=== PATIENT | male | born 1965 | race Caucasian/White ===

== ENCOUNTER 2021-05-17 11:53 | Inpatient (IN) ==
[2021-05-17] MEDS ORDERED: NS 0.9% 1000 ml BAG 1,000 ML IV ONE (11:54)
[2021-05-17] MEDS ORDERED: levETIRAcetam IV 1,500 MG in NS 0.9% 100 ml BAG 100 ML IVPB ONE (12:27)
[2021-05-17 12:42] LABS: ABS Basophils 0.1 10^3/ul (0-0.2); ABS Eosinophils 0.1 10^3/ul (0-0.6); ABS Lymphocytes 1.6 10^3/ul (1.0-4.8); ABS Monocytes 0.5 10^3/ul (0-0.8); ABS Neutrophils 4.1 10^3/ul (1.5-7.7); Hematocrit 46 % (42-52); Hemoglobin 16.4 g/dL (14.0-18.0); Lymphocyte % 24.4 %; Mean Corpuscular HGB Conc 35 g/dL (31-36); Mean Corpuscular Hemoglobin 34 pg (27-31); Mean Corpuscular Volume 95 fL (80-94); Platelet Count 221 10^3/uL (150-450); Red Blood Count 4.88 10^6 /uL (4.18-5.48); Red Cell Distribution Width 13 % (10-15); White Blood Count 6.4 10^3/uL (3.5-10.8)
[2021-05-17] MEDS ORDERED: Dexamethasone IV 10 MG in NS 0.9% 50 ML 50 ML IVPB ONE (12:59)
[2021-05-17 13:02] LABS: ALT 19 U/L (7-52); Alkaline Phosphatase 89 U/L (35-149); Blood Urea Nitrogen 7 mg/dL (6-24); CO2 Carbon Dioxide 25 mmol/L (22-32); Calcium 9.6 mg/dL (8.6-10.3); Chloride 95 mmol/L (101-111); Cholesterol 144 mg/dL; EGFR African American 101.6 (>60); EGFR Non-African American 83.9 (>60); Globulin 3.9 g/dL (2-4); Glucose 117 mg/dL (70-100); HDL Cholesterol 34.5 mg/dL; LDL Cholesterol 88 mg/dL; Sodium 129 mmol/L (135-145); Total Protein 7.9 g/dL (6.4-8.9); Triglycerides 107 mg/dL
[2021-05-17 13:34] LABS: Anion Gap 9 mmol/L (2-11)
[2021-05-17 13:42] LABS: Activated Partial Thrombo Time 34.4 seconds (26.0-38.0); INR 1.25 (0.86-1.15)
[2021-05-17] MEDS ORDERED: Iodixanol (CONTRAST) 320 MG/ML 100 ML SDV IV ONE (13:51)
[2021-05-17] MEDS ORDERED: Dextrose 50% Syringe 50 ml 25 GM/50 ML SYRINGE IV PUSH PRN (14:36)
[2021-05-17 14:53] LABS: Urine Appearance Clear; Urine Bilirubin Negative (Negative); Urine Blood 1+ (Negative); Urine Color Straw; Urine Glucose Negative (Negative); Urine Ketones Negative (Negative); Urine Nitrite Negative (Negative); Urine Protein Negative (Negative); Urine Specific Gravity 1.002 (1.002-1.030); Urine Urobilinogen Negative (Negative)
[2021-05-17 15:00] LABS: Urine Bacteria Absent (Absent); Urine Red Blood Cell Trace(0-2/hpf) (Absent); Urine White Blood Cell Absent (Absent)
[2021-05-17] MEDS ORDERED: hydrALAZINE 20 mg/ml 1 ML Vial IV IV SLOW PU PRN (17:54)
[2021-05-17] MEDS ORDERED: Gadoteridol (CONTRAST) 279.3 MG/ML 10 ML IV ONE (20:34)
[2021-05-17] MEDS: Dexamethasone IV 4 MG/ML VIAL 1 ml VIAL IV SLOW PU SCH (21:41)
[2021-05-17] MEDS: levETIRAcetam 500 MG IVPREMIX 500 MG/100 ML BAG IV SCH (21:41)
[2021-05-18] MEDS: Dexamethasone IV 4 MG/ML VIAL 1 ml VIAL IV SLOW PU SCH ×3 (05:58→22:13)
[2021-05-18] MEDS: levETIRAcetam 500 MG IVPREMIX 500 MG/100 ML BAG IV SCH ×2 (08:44→22:13)
[2021-05-18 09:54] LABS: Calcium 9.1 mg/dL (8.6-10.3); EGFR African American 127.9 (>60); EGFR Non-African American 105.7 (>60)
[2021-05-18] MEDS ORDERED: ceFAZolin 2 GM in NS PREMIX 2 GM/100 ML BAG IVPB ONE (10:00)
[2021-05-18] MEDS: Multivitamins/Minerals TAB PO SCH (11:16)
[2021-05-18] MEDS ORDERED: Al Hydrox/Mg Hydrox/Simet LIQ 30 ML UDC PO ONE (21:00)
[2021-05-19] MEDS ORDERED: Lactated Ringers 1000 ml BAG 1,000 ML IV SCH (06:00)
[2021-05-19] MEDS ORDERED: Buffered Lidocaine 1% SYRIN 1 ml INTRADERM ONE (06:00)
[2021-05-19] MEDS ORDERED: Famotidine IV 10 MG/ML 2 ml VIAL (20 mg) IV ONE (06:00)
[2021-05-19] MEDS: Dexamethasone IV 4 MG/ML VIAL 1 ml VIAL IV SLOW PU SCH ×2 (06:18→17:53)
[2021-05-19] MEDS ORDERED: Gadoteridol (CONTRAST) 279.3 MG/ML 10 ML IV ONE (07:03)
[2021-05-19] MEDS ORDERED: Dexamethasone IV 4 MG/ML VIAL 1 ml VIAL ONE (07:57)
[2021-05-19] MEDS ORDERED: Lidocaine 2% PF 5 ML VIAL ONE (07:57)
[2021-05-19] MEDS: Multivitamins/Minerals TAB PO SCH (07:57)
[2021-05-19] MEDS ORDERED: Propofol 10 MG/ML 20 ML BTL ONE (07:57)
[2021-05-19] MEDS ORDERED: fentaNYL 250 mcg/5 ml 50 MCG/ML 5 ml VIAL (250 MCG) ONE (07:58)
[2021-05-19] MEDS ORDERED: Remifentanil 2 MG VIAL ONE ×2 (07:58→12:15)
[2021-05-19] MEDS ORDERED: Thrombin 5,000 UNITS 1 APPLIC KIT - topical use - TOPICAL ONE (08:02)
[2021-05-19] MEDS ORDERED: ceFAZolin VIAL VIAL ONE (08:03)
[2021-05-19] MEDS ORDERED: Gelfoam Sponge SIZE 100 SPONGE ONE ×2 (08:04→12:24)
[2021-05-19] MEDS ORDERED: Bacitracin OINTMENT TUBE ONE (08:04)
[2021-05-19] MEDS ORDERED: Rocuronium 50 mg VIAL 10 mg/ml 5 ml VIAL (50 mg) ONE (08:08)
[2021-05-19] MEDS: levETIRAcetam 500 MG IVPREMIX 500 MG/100 ML BAG IV SCH ×2 (08:13→22:53)
[2021-05-19] MEDS ORDERED: Glycopyrrolate IV 0.2 MG/ML 1 ML VIAL ONE ×2 (08:15→13:27)
[2021-05-19] MEDS ORDERED: Furosemide 20 mg/2 ml IV VIAL ONE (08:17)
[2021-05-19] MEDS ORDERED: Midazolam 2 mg/2 ml VIAL 1 mg/ml 2 ml VIAL (2 mg) ONE (08:18)
[2021-05-19] MEDS ORDERED: Phenylephrine IV 10 MG/ML 1 ml VIAL ONE (08:18)
[2021-05-19] MEDS ORDERED: Mannitol 25% (12.5 GM) 50 ML 12.5 GM/50 ML VIAL ONE (08:29)
[2021-05-19] MEDS ORDERED: ceFAZolin 2 GM in NS PREMIX 2 GM/100 ML BAG IVPB ONE ×2 (09:36→10:00)
[2021-05-19] MEDS ORDERED: Famotidine IV 10 MG/ML 2 ml VIAL (20 mg) ONE (09:36)
[2021-05-19] MEDS ORDERED: Propofol 10 mg/ml 100 ML BTL 300 ML ONE (09:48)
[2021-05-19 11:58] LABS: PCO2 Arterial 39 mmHg (35-45); PO2 Arterial 201 mmHg (80-100)
[2021-05-19] MEDS ORDERED: Acetaminophen IV 1 GM/100ML 100 ML IV ONE (13:42)
[2021-05-19] MEDS ORDERED: Esmolol 10 MG/ML 10 ML (100 mg) ONE (13:44)
[2021-05-19] MEDS ORDERED: Ondansetron 4 mg VIAL 2 MG/ML 2 ml VIAL ONE (14:10)
[2021-05-19] MEDS ORDERED: ceFAZolin 1 GM ADVAN 1 GM ADDV.VIAL IVPB ONE (14:40)
[2021-05-19] MEDS ORDERED: Naloxone 0.4 mg VIAL 0.4 mg/ml 1 ml VIAL IV PRN (16:02)
[2021-05-19] MEDS ORDERED: Ondansetron 4 mg VIAL 2 MG/ML 2 ml VIAL IV PRN (16:02)
[2021-05-19] MEDS ORDERED: Labetalol IV 5 MG/ML 20 ml VIAL IV PUSH ONE (16:04)
[2021-05-19] MEDS ORDERED: Labetalol IV 5 MG/ML 20 ml VIAL ONE (16:08)
[2021-05-19] MEDS ORDERED: fentaNYL 100 mcg/2 ml 50 MCG/ML VIAL ONE (16:23)
[2021-05-19] MEDS: fentaNYL 100 mcg/2 ml 50 MCG/ML VIAL IV PRN ×4 (16:26→16:45)
[2021-05-19] MEDS ORDERED: Midazolam 5 mg/5 ml VIAL 1 mg/ml 5 ml VIAL (5 mg) ONE (16:31)
[2021-05-19] MEDS ORDERED: Midazolam 2 mg/2 ml VIAL 1 mg/ml 2 ml VIAL (2 mg) IV SLOW PU ONE (16:32)
[2021-05-19] MEDS ORDERED: Haloperidol 5 mg/ml SDV IV/IM 5 MG/ML AMP IV SLOW PU PRN (17:33)
[2021-05-19] MEDS ORDERED: Morphine 2 MG/ML SYRINGE IV PRN (17:34)
[2021-05-19] MEDS ORDERED: Dexamethasone IV 4 MG/ML VIAL 1 ml VIAL IV SLOW PU SCH (18:00)
[2021-05-19] MEDS: hydrALAZINE 20 mg/ml 1 ML Vial IV IV SLOW PU PRN (18:07)
[2021-05-19] MEDS: Ondansetron 4 mg VIAL 2 MG/ML 2 ml VIAL IV PRN (18:11)
[2021-05-19] MEDS: niCARdipine 0.1MG/ML IVPREMIX 20 MG/200 ML BAG IV SCH ×2 (18:19→20:51)
[2021-05-19] MEDS ORDERED: LORazepam 2 mg VIAL 1 ml IV PUSH PRN (18:26)
[2021-05-19] MEDS ORDERED: Lorazepam PYXIS KEY PRN ×2 (18:26→18:28)
[2021-05-19] MEDS ORDERED: LORazepam 2 mg VIAL 1 ml IV PUSH SCH (19:00)
[2021-05-19] MEDS ORDERED: LORazepam 2 mg VIAL 1 ml ONE (19:12)
[2021-05-19] MEDS ORDERED: Lorazepam PYXIS KEY ONE (19:12)
[2021-05-19] MEDS ORDERED: LORazepam 2 mg VIAL 1 ml IV PUSH ONE (19:30)
[2021-05-19] MEDS: Dexmedetomidine 1,000 MCG in NS 0.9% 250 ml 240 ML IV SCH (20:06)
[2021-05-19] MEDS ORDERED: NS 0.9% 1,000 ML IV SCH (23:15)
[2021-05-20] MEDS: ceFAZolin 2 GM in NS 100 MLS Q8H (Pharmacy Admix) IVPB SCH ×4 (00:32→22:10)
[2021-05-20] MEDS ORDERED: Dexamethasone IV 4 MG/ML VIAL 1 ml VIAL IV SLOW PU SCH (02:00)
[2021-05-20] MEDS: niCARdipine 0.1MG/ML IVPREMIX 20 MG/200 ML BAG IV SCH ×2 (04:00→07:44)
[2021-05-20 04:37] LABS: Hematocrit 42 % (42-52); Hemoglobin 14.9 g/dL (14.0-18.0); Mean Corpuscular HGB Conc 35 g/dL (31-36); Mean Corpuscular Hemoglobin 33 pg (27-31); Mean Corpuscular Volume 94 fL (80-94); Mean Platelet Volume 8.2 fL (7.4-10.4); Platelet Count 214 10^3/uL (150-450); Red Blood Count 4.47 10^6 /uL (4.18-5.48); Red Cell Distribution Width 13 % (10-15)
[2021-05-20 05:08] LABS: Calcium 8.6 mg/dL (8.6-10.3); EGFR African American 152.8 (>60); EGFR Non-African American 126.3 (>60); Magnesium 1.7 mg/dL (1.9-2.7); Phosphorus 2.8 mg/dL (2.5-5.0); Potassium 3.3 mmol/L (3.5-5.0)
[2021-05-20 05:21] LABS: TSH Ultra Thyroid Stim Horm 1.04 mcIU/mL (0.34-5.60)
[2021-05-20] MEDS ORDERED: Magnesium Sulfate 2 gm BAG 2 GM/50 ML BAG IVPB ONE ×2 (05:50→08:41)
[2021-05-20] MEDS ORDERED: KCL 20 MEQ/100 ML IVPREMIX 20 MEQ/100 ML BAG IV ONE (05:50)
[2021-05-20] MEDS: Multivitamins/Minerals TAB PO SCH (07:31)
[2021-05-20] MEDS: Enoxaparin 40 MG/0.4 ML SYR SUBCUT SCH (07:45)
[2021-05-20] MEDS: levETIRAcetam 500 MG IVPREMIX 500 MG/100 ML BAG IV SCH ×2 (09:44→20:13)
[2021-05-20] MEDS: Pantoprazole VIAL 40 MG VIAL IV SCH (09:46)
[2021-05-20] MEDS: Morphine 2 MG/ML SYRINGE IV PRN ×3 (10:35→18:00)
[2021-05-20] MEDS: Valproic Acid IV 500 MG in NS 0.9% 100 ML IVPB SCH ×2 (11:20→20:13)
[2021-05-20] MEDS: Thiamine 100 MG/ML 2 ml VIAL 100 MG in NS 0.9% 50 ML 50 ML IV SCH (12:20)
[2021-05-20] MEDS: Acetaminophen IV 1 GM/100ML 100 ML IV SCH ×2 (13:41→22:10)
[2021-05-20] MEDS: Dexamethasone IV 4 MG/ML VIAL 1 ml VIAL IV SLOW PU SCH ×3 (13:41→23:53)
[2021-05-20] MEDS ORDERED: Lorazepam PYXIS KEY PRN (18:12)
[2021-05-20] MEDS ORDERED: LORazepam 2 mg VIAL 1 ml IV PUSH ONE (18:15)
[2021-05-20] MEDS: Dexmedetomidine 1,000 MCG in NS 0.9% 250 ml 240 ML IV SCH (19:10)
[2021-05-21] MEDS: hydrALAZINE 20 mg/ml 1 ML Vial IV IV SLOW PU PRN ×3 (01:26→18:16)
[2021-05-21 02:43] LABS: Urine Appearance Clear; Urine Bilirubin Negative (Negative); Urine Blood Negative (Negative); Urine Color Yellow; Urine Glucose 1+(50 mg/dL) (Negative); Urine Ketones Trace (Negative); Urine Nitrite Negative (Negative); Urine Protein Negative (Negative); Urine Specific Gravity 1.019 (1.002-1.030); Urine Urobilinogen Negative (Negative)
[2021-05-21] MEDS: Morphine 2 MG/ML SYRINGE IV PRN ×4 (04:28→19:55)
[2021-05-21 05:22] LABS: Hematocrit 39 % (42-52); Mean Corpuscular HGB Conc 36 g/dL (31-36); Mean Corpuscular Hemoglobin 34 pg (27-31); Mean Corpuscular Volume 95 fL (80-94); Mean Platelet Volume 8.1 fL (7.4-10.4); Platelet Count 187 10^3/uL (150-450); Red Blood Count 4.16 10^6 /uL (4.18-5.48); Red Cell Distribution Width 13 % (10-15); White Blood Count 10.1 10^3/uL (3.5-10.8)
[2021-05-21 05:32] LABS: Calcium 8.1 mg/dL (8.6-10.3); EGFR African American 177.3 (>60); EGFR Non-African American 146.6 (>60); Magnesium 2.4 mg/dL (1.9-2.7); Phosphorus 2.4 mg/dL (2.5-5.0); Potassium 3.7 mmol/L (3.5-5.0)
[2021-05-21] MEDS: Acetaminophen IV 1 GM/100ML 100 ML IV SCH ×3 (05:32→21:15)
[2021-05-21] MEDS: ceFAZolin 2 GM in NS 100 MLS Q8H (Pharmacy Admix) IVPB SCH ×3 (05:33→21:00)
[2021-05-21] MEDS: Dexamethasone IV 4 MG/ML VIAL 1 ml VIAL IV SLOW PU SCH ×3 (05:33→17:38)
[2021-05-21] MEDS: Enoxaparin 40 MG/0.4 ML SYR SUBCUT SCH (08:48)
[2021-05-21] MEDS: Pantoprazole VIAL 40 MG VIAL IV SCH (08:48)
[2021-05-21] MEDS: Thiamine 100 MG/ML 2 ml VIAL 100 MG in NS 0.9% 50 ML 50 ML IV SCH (08:49)
[2021-05-21] MEDS: Multivitamins/Minerals TAB PO SCH (09:04)
[2021-05-21] MEDS: levETIRAcetam 500 MG IVPREMIX 500 MG/100 ML BAG IV SCH ×2 (10:17→20:51)
[2021-05-21] MEDS: Valproic Acid IV 500 MG in NS 0.9% 100 ML IVPB SCH ×2 (10:36→19:56)
[2021-05-21] MEDS ORDERED: NS 0.9% 1000 ml BAG 1,000 ML IV SCH (11:03)
[2021-05-21] MEDS ORDERED: Albuterol 2.5mg/3 ml (0.083%) NEB.SOLN INH PRN (11:04)
[2021-05-21] MEDS ORDERED: NS 0.9% 100 ml BAG 100 ML ONE ×2 (19:53→20:57)
[2021-05-21] MEDS: Ondansetron 4 mg VIAL 2 MG/ML 2 ml VIAL IV PRN (19:56)
[2021-05-22] MEDS: Morphine 2 MG/ML SYRINGE IV PRN ×2 (03:04→06:15)
[2021-05-22] MEDS ORDERED: NS 0.9% 100 ml BAG 100 ML ONE (05:22)
[2021-05-22] MEDS: ceFAZolin 2 GM in NS 100 MLS Q8H (Pharmacy Admix) IVPB SCH ×3 (05:33→22:31)
[2021-05-22] MEDS: Dexamethasone IV 4 MG/ML VIAL 1 ml VIAL IV SLOW PU SCH ×4 (05:33→20:48)
[2021-05-22] MEDS: Acetaminophen IV 1 GM/100ML 100 ML IV SCH (05:33)
[2021-05-22 06:05] LABS: Hematocrit 40 % (42-52); Mean Corpuscular HGB Conc 35 g/dL (31-36); Mean Corpuscular Hemoglobin 33 pg (27-31); Mean Corpuscular Volume 95 fL (80-94); Mean Platelet Volume 8.1 fL (7.4-10.4); Platelet Count 214 10^3/uL (150-450); Red Blood Count 4.24 10^6 /uL (4.18-5.48); Red Cell Distribution Width 13 % (10-15); White Blood Count 11.5 10^3/uL (3.5-10.8)
[2021-05-22] MEDS: Nicotine PATCH 21 MG/24 HR PATCH TRANSDERM SCH (06:14)
[2021-05-22 06:20] LABS: Calcium 8.5 mg/dL (8.6-10.3); EGFR African American 170.5 (>60); EGFR Non-African American 140.9 (>60); Magnesium 2.5 mg/dL (1.9-2.7); Phosphorus 2.5 mg/dL (2.5-5.0); Potassium 3.6 mmol/L (3.5-5.0)
[2021-05-22] MEDS: levETIRAcetam 500 MG IVPREMIX 500 MG/100 ML BAG IV SCH ×2 (09:20→20:48)
[2021-05-22] MEDS: Enoxaparin 40 MG/0.4 ML SYR SUBCUT SCH (09:20)
[2021-05-22] MEDS: Multivitamins/Minerals TAB PO SCH (09:20)
[2021-05-22] MEDS: Pantoprazole VIAL 40 MG VIAL IV SCH (09:21)
[2021-05-22] MEDS ORDERED: Gadoteridol (CONTRAST) 279.3 MG/ML 10 ML IV ONE (11:01)
[2021-05-22] MEDS: Valproic Acid IV 500 MG in NS 0.9% 100 ML IVPB SCH (11:33)
[2021-05-22] MEDS: Thiamine 100 MG/ML 2 ml VIAL 100 MG in NS 0.9% 50 ML 50 ML IV SCH (12:23)
[2021-05-22] MEDS ORDERED: Morphine 2 MG/ML SYRINGE IV PRN ×2 (14:19→14:37)
[2021-05-23] MEDS: hydrALAZINE 20 mg/ml 1 ML Vial IV IV SLOW PU PRN ×4 (03:33→21:21)
[2021-05-23] MEDS: Dexamethasone IV 4 MG/ML VIAL 1 ml VIAL IV SLOW PU SCH ×3 (03:33→21:25)
[2021-05-23] MEDS: ceFAZolin 2 GM in NS 100 MLS Q8H (Pharmacy Admix) IVPB SCH ×2 (06:06→13:19)
[2021-05-23] MEDS: Nicotine PATCH 21 MG/24 HR PATCH TRANSDERM SCH (07:49)
[2021-05-23] MEDS: Multivitamins/Minerals TAB PO SCH (07:58)
[2021-05-23] MEDS: Enoxaparin 40 MG/0.4 ML SYR SUBCUT SCH (07:59)
[2021-05-23] MEDS: Pantoprazole VIAL 40 MG VIAL IV SCH (07:59)
[2021-05-23] MEDS: Sulfamethox/Trimethoprim DS TAB 800/160 mg PO SCH (21:27)
[2021-05-23] MEDS ORDERED: Dexamethasone IV 4 MG/ML VIAL 1 ml VIAL IV SLOW PU SCH (22:00)
[2021-05-24] MEDS: Dexamethasone IV 4 MG/ML VIAL 1 ml VIAL IV SLOW PU SCH (04:03)
[2021-05-24 06:32] LABS: ABS Monocytes 0.7 10^3/ul (0-0.8); ABS Neutrophils 5.6 10^3/ul (1.5-7.7); Hematocrit 39 % (42-52); Hemoglobin 13.5 g/dL (14.0-18.0); Lymphocyte % 14.3 %; Mean Corpuscular HGB Conc 35 g/dL (31-36); Mean Corpuscular Hemoglobin 33 pg (27-31); Mean Corpuscular Volume 95 fL (80-94); Mean Platelet Volume 8.2 fL (7.4-10.4); Platelet Count 254 10^3/uL (150-450); Red Blood Count 4.06 10^6 /uL (4.18-5.48); Red Cell Distribution Width 13 % (10-15); White Blood Count 7.3 10^3/uL (3.5-10.8)
[2021-05-24 07:18] LABS: Calcium 8.5 mg/dL (8.6-10.3); EGFR African American 167.3 (>60); EGFR Non-African American 138.3 (>60); Potassium 3.7 mmol/L (3.5-5.0)
[2021-05-24 07:37] VITALS: BP 136/74
[2021-05-24] MEDS: Multivitamins/Minerals TAB PO SCH (07:52)
[2021-05-24] MEDS: Sulfamethox/Trimethoprim DS TAB 800/160 mg PO SCH (07:53)
[2021-05-24] MEDS: Nicotine PATCH 21 MG/24 HR PATCH TRANSDERM SCH (07:57)
[2021-06-07 03:39] LABS: LNGPR Tissue ID S21-7447-2
== END 2021-05-24 07:00 | DRG 21 ==
LOC: ED 11:53 → MED 14:26 → MEDTELE 16:36 → ED 16:36 → MEDTELE 17:31 → ICU 05-19 17:37 → SSU 05-22 19:48
PROVIDERS: ADMIT Hospitalist; ATTEND Internal Medicine

== ENCOUNTER 2021-05-24 09:04 | Inpatient (IN) ==
[2021-05-24] MEDS ORDERED: Senna TAB 8.6 mg TAB PO PRN (11:23)
[2021-05-24] MEDS: Sulfamethox/Trimethoprim DS TAB 800/160 mg PO SCH (20:20)
[2021-05-24] MEDS ORDERED: Dextrose 50% Syringe 50 ml 25 GM/50 ML SYRINGE IV PUSH PRN (23:36)
[2021-05-25] MEDS: Sulfamethox/Trimethoprim DS TAB 800/160 mg PO SCH ×2 (07:31→20:46)
[2021-05-25] MEDS: Nicotine PATCH 14 MG/24 HR PATCH TRANSDERM SCH (07:32)
[2021-05-26 06:50] LABS: ABS Eosinophils 0.1 10^3/ul (0-0.6); ABS Lymphocytes 2.5 10^3/ul (1.0-4.8); ABS Neutrophils 5.1 10^3/ul (1.5-7.7); Hematocrit 37 % (42-52); Hemoglobin 13.2 g/dL (14.0-18.0); Lymphocyte % 29.1 %; Mean Corpuscular HGB Conc 36 g/dL (31-36); Mean Corpuscular Hemoglobin 34 pg (27-31); Mean Corpuscular Volume 94 fL (80-94); Mean Platelet Volume 7.7 fL (7.4-10.4); Nucleated Red Blood Cells % 0.1; Platelet Count 267 10^3/uL (150-450); Red Blood Count 3.92 10^6 /uL (4.18-5.48); Red Cell Distribution Width 13 % (10-15); White Blood Count 8.7 10^3/uL (3.5-10.8)
[2021-05-26 06:53] LABS: Albumin 3.4 g/dL (3.2-5.2); Calcium 8.5 mg/dL (8.6-10.3); EGFR African American 129.8 (>60); EGFR Non-African American 107.3 (>60); Globulin 3.3 g/dL (2-4); Potassium 3.5 mmol/L (3.5-5.0); Total Bilirubin 0.7 mg/dL (0.2-1.0); Total Protein 6.7 g/dL (6.4-8.9)
[2021-05-26] MEDS: Sulfamethox/Trimethoprim DS TAB 800/160 mg PO SCH ×2 (07:14→20:49)
[2021-05-26] MEDS: Nicotine PATCH 14 MG/24 HR PATCH TRANSDERM SCH (07:20)
[2021-05-26] MEDS: Heparin 5000 UNITS/ML 1 mL VIAL SUBCUT SCH (20:51)
[2021-05-27] MEDS: Sulfamethox/Trimethoprim DS TAB 800/160 mg PO SCH ×2 (09:30→21:57)
[2021-05-27] MEDS: Heparin 5000 UNITS/ML 1 mL VIAL SUBCUT SCH ×2 (09:31→21:51)
[2021-05-27] MEDS: Nicotine PATCH 14 MG/24 HR PATCH TRANSDERM SCH (09:31)
[2021-05-27] MEDS: Miconazole TOPICAL CREAM 2% 30 GM TOPICAL SCH (21:56)
[2021-05-28] MEDS: Sulfamethox/Trimethoprim DS TAB 800/160 mg PO SCH ×2 (11:31→21:06)
[2021-05-28] MEDS: Heparin 5000 UNITS/ML 1 mL VIAL SUBCUT SCH ×2 (11:32→21:06)
[2021-05-28] MEDS: Nicotine PATCH 14 MG/24 HR PATCH TRANSDERM SCH (11:33)
[2021-05-28] MEDS: Miconazole TOPICAL CREAM 2% 30 GM TOPICAL SCH ×2 (11:39→21:14)
[2021-05-29] MEDS: Sulfamethox/Trimethoprim DS TAB 800/160 mg PO SCH ×2 (08:56→21:09)
[2021-05-29] MEDS: Heparin 5000 UNITS/ML 1 mL VIAL SUBCUT SCH ×2 (08:56→21:09)
[2021-05-29] MEDS: Nicotine PATCH 14 MG/24 HR PATCH TRANSDERM SCH (09:01)
[2021-05-29] MEDS: Miconazole TOPICAL CREAM 2% 30 GM TOPICAL SCH ×2 (09:01→21:15)
[2021-05-30 05:38] VITALS: BP 109/70
[2021-05-30] MEDS: Sulfamethox/Trimethoprim DS TAB 800/160 mg PO SCH (09:17)
[2021-05-30] MEDS: Heparin 5000 UNITS/ML 1 mL VIAL SUBCUT SCH (09:18)
[2021-05-30] MEDS: Miconazole TOPICAL CREAM 2% 30 GM TOPICAL SCH (09:18)
[2021-05-30] MEDS: Nicotine PATCH 14 MG/24 HR PATCH TRANSDERM SCH (09:19)
== END 2021-05-30 11:20 | disposition home or self-care (01) | DRG 41 ==
LOC: PMRU 09:31
PROVIDERS: ADMIT Physical Medicine & Rehabilitation; ATTEND Physical Medicine & Rehabilitation